=== PATIENT | female | born 1955 | race Caucasian/White ===

== ENCOUNTER 2022-10-13 13:20 | Emergency (ER) | payer MEDICARE, BC, SELFPAY ==
[2022-10-13 13:25] VITALS: BP 98/65; PULSE 92; RESP 14; TEMP 36.9; O2SAT 99; BMI 19.7
--- NOTE | 2022-10-13 13:41 | CRLHL7_ITS ---
For Patients: As a result of the Century Cures Act, medical imaging exams and procedure reports are released immediately into your electronic medical record. You may view this report before your referring provider. If you have questions, please contact your health care provider. INDICATION: Lower abdominal pain, history of diverticulitis TECHNIQUE: Axial images were obtained from the diaphragm to the pubic symphysis. Reformats were obtained in the coronal and sagittal plane. IV Contrast: 56 cc Isovue 370 Oral Contrast: None COMPARISON: Abdomen and pelvis CT 05/06/2021 FINDINGS: Lower chest: Basilar discoid atelectasis. Calcified granuloma right lower lobe. Calcified right infrahilar and right paraesophageal lymph nodes. Liver: Unremarkable. Normal in size and attenuation. No masses. Gallbladder and bile ducts: Unremarkable. No stones or inflammation. No biliary dilatation. Spleen: Unremarkable. Normal in size without mass. Pancreas: Unremarkable. No mass or inflammation. Adrenal glands: Unremarkable. No nodules. Kidneys: Symmetric renal enhancement with left renal cyst. Bilateral extrarenal pelvises. Vasculature: Unremarkable. GI tract: The stomach is decompressed. No dilated loops of large or small intestine with colonic diverticulosis noted. Appendix unremarkable. At the mid sigmoid colon there is trace free fluid, colonic wall thickening surrounding a mid sigmoid diverticulum (series 4, image 49). Pelvis: Unremarkable. Bones: Old compression fracture of L5 with loss of height near 25 percent. Status post right total hip replacement. IMPRESSION: 1. Acute diverticulitis mid sigmoid colon. Trace free fluid without evidence of abscess. 2. Old granulomatous disease. Please note that all CT scans at this facility use dose modulation, iterative reconstruction, and/or weight-based dosing when appropriate to reduce radiation dose to as low as reasonably achievable. Dictated by Max Godinez MD @ 10/13/2022 3:29:21 PM (Electronically Signed)
--- NOTE | 2022-10-13 13:43 | ED_ITS ---
HPI - Abdominal Pain General Chief Complaint: Abdominal Pain Stated Complaint: Abdominal/back pain Time Seen by Provider: 10/13/22 13:35 History of Present Illness HPI narrative: This 67-year-old female comes in reporting 2 days of abdominal pain in her lower abdomen. She also feels some pain in her low back. She states that she felt feverish a couple days ago. She does not report any vomiting or diarrhea. She does have a history of diverticulitis a couple times in the past. She does not report any altered bowel function or dysuria symptoms. Related Data Previous Rx's Medication Instructions Recorded amoxicillin 875 mg-potassium 1 tab PO BID #20 tabs 10/13/22 clavulanate 125 mg tablet hydrocodone 5 mg-acetaminophen 325 1 tab PO Q4-6H PRN pain #10 tabs 10/13/22 mg tablet Allergies Allergy/AdvReac Type Severity Reaction Status Date / Time Penicillins Allergy Mild Hives Verified 10/13/22 14:58 Review of Systems Status of ROS Reports: 10 or more systems reviewed and unremarkable except as noted in History and below Narrative Constitutional: No fevers, no weight gain or loss. Eyes: No discharge. No vision changes. HENT: No congestion, no sore throat, no ear pain. Cardiovascular: No chest pain, no palpitations. Respiratory: No shortness of breath, no wheezes, no cough. Gastrointestinal: No vomiting, no diarrhea. Lower abdominal pain and pain in the low back. Genitourinary: No dysuria, no hematuria. Musculoskeletal: Normal range of motion. Skin: No rashes, no pruritis. Neurological: No dizziness, weakness, sensory change, speech change. Endo/Heme/Allergies: No bruising or bleeding. No polydipsia. Pysch: no suicidality, no anxiety, no insomnia. All other systems reviewed and are negative. PFSH PFSH Social History Smoking Status: Never smoker Do you use any of these nicotine containing products: None Second hand tobacco smoke exposure: No How often do you have a drink containing alcohol: never AUDIT-C Alcohol total score: 0 Non-prescribed substance use: denies use Exam Narrative: Exam Narrative: Constitutional: Well-developed, well-nourished, no acute distress. HEENT: Normocephalic, atraumatic. Neck: Normal range of motion. Nontender. Supple. Heart: Regular. No murmurs. Normal rate. Intact distal pulses. Lungs: Clear to auscultation. No chest discomfort. No wheezes, rhonchi, or rales. Abdomen: Normal bowel sounds. Tenderness across the lower abdomen radiating into the low back. Rebound tenderness is present. Genitalia: Deferred. Back: No midline tenderness. Normal range of motion. Extremities: Normal range of motion. No injury. Skin: Intact. No rash. Warm. No erythema or pallor. Neurologic: No altered sensation. No weakness. Alert and oriented. Psychiatric: No suicidality. No anxiety or depression. No insomnia. Nursing notes and vitals signs are reviewed. Const: Vital Signs, click to edit/add: Vital Signs - 24 hr 10/13/22 13:25 Temperature 98.5 F Pulse Rate [Pulse Oximeter] 92 Respiratory Rate 14 Blood Pressure [Ri ght Upper Arm] 98/65 Pulse Oximetry 99 Oxygen Delivery Me thod Room Air Course Vital Signs Vital signs: Initial Vital Signs Temperature 98.5 F 10/13/22 13:25 Temperature Source Temporal Artery Scan 10/13/22 13:25 Pulse Rate 92 10/13/22 13:25 Respiratory Rate 14 10/13/22 13:25 Blood Pressure 98/65 10/13/22 13:25 Blood Pressure Mean 76 10/13/22 13:25 Blood Pressure Position Sitting 10/13/22 13:25 Pulse Oximetry 99 10/13/22 13:25 Oxygen Delivery Method Room Air 10/13/22 13:25 Vital Signs Temperature 98.5 F 10/13/22 13:25 Pulse Rate 92 10/13/22 13:25 Respiratory Rate 14 10/13/22 13:25 Blood Pressure 98/65 10/13/22 13:25 Pulse Oximetry 99 10/13/22 13:25 Oxygen Delivery Method Room Air 10/13/22 13:25 Temperature 98.5 F 10/13/22 13:25 Pulse Rate 92 10/13/22 13:25 Respiratory Rate 14 10/13/22 13:25 Blood Pressure 98/65 10/13/22 13:25 Pulse Oximetry 99 10/13/22 13:25 Oxygen Delivery Method Room Air 10/13/22 13:25 MDM - Abdominal Pain MDM Narrative Medical decision making narrative: This patient comes in with abdominal pain over the past couple days. An IV was established and labs are acquired along with a CT scan of the abdomen and pelvis. CT imaging does show evidence of acute diverticulitis without any further complication. The patient has a history of diverticulitis a couple times in the past. I did discuss management and prevention issues regarding this condition. She states that she has had Cipro and Flagyl in the past to treat this but those medicines did not sit well with her. I did prescribe Augmentin and some tablets of Woody and indicated that any antibiotic can cause adverse symptoms. I also recommended that she keep her stool soft by using fiber additive. This is especially important when taking pain medicine. The patient does have penicillin listed as an allergy but states that she has taken amoxicillin without trouble in the past. Lab Data Labs: Lab Results 10/13/22 10/13/22 Range/Units 14:05 14:20 WBC 9.32 (4.50-11.00) K/uL RBC 4.38 (4.00-5.20) m/uL Hgb 13.2 (12.0-16.0) gm/dL Hct 39.4 (33.0-51.0) % MCV 90 (80-100) fL MCH 30 (26-34) pg MCHC 34 (32-36) gm/dL RDW Coeff of Deshawn 11.8 (11.5-15.5) % Plt Count 178 (140-440) K/uL Neut % (Auto) 79.0 H (42.0-72.0) % Lymph % (Auto) 13.1 L (20-44) % Kemper % (Auto) 7.5 (0.0-11.0) % Eos % (Auto) 0.2 (0.0-7.0) % Baso % (Auto) 0.1 (0.0-3.0) % Neut # (Auto) 7.40 H (1.7-7.0) K/uL Lymph # (Auto) 1.20 (0.90-2.90) K/uL Kemper # (Auto) 0.70 (0.00-0.90) K/UL Eos # (Auto) 0.02 (0.00-0.50) K/uL Baso # (Auto) 0.01 (0.00-0.30) K/uL Sodium 132 L (135-149) mmol/L Potassium 4.3 (3.6-5.1) mmol/L Chloride 101 (96-114) mmol/L Carbon Dioxide 26 (20-32) mmol/L BUN 13 (7-30) mg/dL Creatinine 0.6 (0.5-1.5) mg/dL Estimated Creat Clear 44.34 Estimated GFR 98 ml/min Glucose 103 (60-115) mg/dL Calcium 9.1 (8.4-10.6) mg/dL Urine Color Yellow (Yellow) Urine Appearance Slightly Cloudy A (Clear) Urine pH 6.5 (5.0-8.5) Ur Specific [place] 1.020 (1.000-1.030) Urine Protein Trace A (Negative) Urine Glucose (UA) Negative (Negative) Urine Ketones Trace A (Negative) Urine Blood Negative (Negative) Urine Nitrite Negative (Negative) Urine Bilirubin Negative (Negative) Urine Urobilinogen 0.2 (0.2-1.0) Ur Leukocyte Esterase Trace A (Negative) Urine RBC 2-5 A (0-2) Urine WBC 0-2 (0-5) Urine WBC Clumps None (None) Ur Squamous Epith Cells Few (None-Few) Urine Bacteria None (None) Imaging Data CT scan - abdomen: Radiologist's impression: 1. Acute diverticulitis mid sigmoid colon. Trace free fluid without evidence of abscess. 2. Old granulomatous disease. Discharge Plan Discharge Clinical Impression: Diverticulitis Patient Disposition: Home, Self-Care Condition: Unchanged Additional Instructions: Take medication as prescribed. Drink plenty of fluids. Use stool softeners as needed and directed. Follow up with MD or return if worsening. Prescriptions: New hydrocodone-acetaminophen 5-325 mg tablet 1 tab PO Q4-6H PRN (Reason: pain) Qty: 10 0RF amoxicillin-pot clavulanate 875-125 mg tablet 1 tab PO BID Qty: 20 0RF Follow Up/Referrals: Provider,Not a Local [Primary Care Provider] - Stand Alone Forms: [employer] Info Instructions
[2022-10-13 14:15] LABS: Basophils Absolute Auto 0.01 K/uL (0.00-0.30); Basophils Percent Auto 0.1 % (0.0-3.0); Eosinophils Absolute Auto 0.02 K/uL (0.00-0.50); Eosinophils Percent Auto 0.2 % (0.0-7.0); Hematocrit 39.4 % (33.0-51.0); Hemoglobin* 13.2 gm/dL (12.0-16.0); Immature Granulocytes Abs Auto 0.01 K/uL (0.00-0.30); Immature Granulocytes Pct Auto 0.1 %; Lymphocytes Percent Auto 13.1 % (20-44); Mean Corpuscular HGB Conc 34 gm/dL (32-36); Mean Corpuscular Hemoglobin 30 pg (26-34); Mean Corpuscular Volume 90 fL (80-100); Monocytes Percent Auto 7.5 % (0.0-11.0); Platelet Count* 178 K/uL (140-440); RDW Coefficient of Variation % 11.8 % (11.5-15.5); Red Blood Count 4.38 m/uL (4.00-5.20); White Blood Count* 9.32 K/uL (4.50-11.00)
[2022-10-13 14:17] LABS: Slide Review Reflex No
[2022-10-13 14:28] LABS: Chloride* 101 mmol/L (96-114); Potassium* 4.3 mmol/L (3.6-5.1); Sodium* 132 mmol/L (135-149)
--- NOTE | 2022-10-13 14:28 | ED.NURSE ---
urine collected and sent to lab
[2022-10-13 14:30] LABS: Creatinine* 0.6 mg/dL (0.5-1.5); Est. Creatinine Clearance* 44.34; Estimated Glomerular Filt Rate 98 ml/min
[2022-10-13 14:31] LABS: Blood Urea Nitrogen* 13 mg/dL (7-30); Carbon Dioxide* 26 mmol/L (20-32); Glucose* 103 mg/dL (60-115)
[2022-10-13 14:32] LABS: Appearance Urine Slightly Cloudy (Clear); Bilirubin Urine Negative (Negative); Blood Urine Negative (Negative); Color Urine Yellow (Yellow); Glucose Urine Negative (Negative); Ketones Urine Trace (Negative); Leukocyte Esterase Urine Trace (Negative); Nitrite Urine Negative (Negative); Protein Urine Trace (Negative); Urobilinogen Urine 0.2 (0.2-1.0); pH Urine 6.5 (5.0-8.5)
[2022-10-13 14:32] LABS: Calcium* 9.1 mg/dL (8.4-10.6)
[2022-10-13 15:21] LABS: Squamous Epithelial Cell Urine Few (None-Few); WBC Urine 0-2 (0-5)
== END 2022-10-13 16:16 | disposition home or self-care (01) ==
PROVIDERS: Emergency Provider Emergency Medicine Emergency Medical Services
DX: R10.9 Unspecified abdominal pain (principal)
CPT/HCPCS: 36415; 74177; 80048; 81001; 85025; 99284; Q9967

== ENCOUNTER 2024-06-09 11:04 | Outpatient (CLI) | payer MEDICARE, BC, SELFPAY | END 2024-06-09 11:05 | disposition home or self-care (01) | LOC: NFLDREF 06-12 06:26 | PROVIDERS: Visit Provider Nurse Practitioner Family | DX: N30.00 Acute cystitis without hematuria (principal); B96.20 Unspecified Escherichia coli [E. coli] as the cause of diseases classified elsewhere | CPT/HCPCS: 87086; 87186 ==

== ENCOUNTER 2024-09-11 08:06 | Emergency (ER) | payer MEDICARE, BC, SELFPAY ==
[2024-09-11 08:09] VITALS: BP 107/69; PULSE 82; RESP 16; TEMP 37; O2SAT 98; BMI 22.5
--- OUTSIDE RECORDS SUMMARY | 2024-09-11 08:09 | XMS_ITS | Encounter Summary ---
Author Organization [place] Address [address] [place] [id number] Care Team Providers Care Waste Removalist Name Role Phone Denisha Grayson DO Primary Care Provider [phone] Gómez Cook MD Unavailable [phone] Gómez Cook MD Unavailable [phone] Glenna Bryant PA-C Primary Care Provid er Glenna Bryant PA-C Unavailable + [phone] Gómez Cook MD Unavailable [phone] Reason for Visit * Reason Onset Date Comments Results 10/10/2019 would like to ta lk to the nurse today Results 10/11/2019 Xray results fro m monday Encounter Details Date Type Department Care Team (Late st Contact Info) Description 10/10/2019 Telephone [facility] [address] [place] [address] Gómez Cook MD [address] [place] [address] Results (would like to talk to the nurse today); Results (Xray results from monday ) Social History Tobacco Use Types Packs/Day Years Used Date Smoking Tobacco: Never Smokeless Tobacco: Never Alcohol Use Standard Drinks/Week Comments No 0 (1 standard drink = 0.6 oz pur e alcohol) PHQ-2 Answer Date Recorded PHQ-2 Score 0 07/10/2018 Comments No Sex and Gender Information Value Date Recorded Sex Assigned at Not on file Legal 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 No / Unsure 10/07/2019 8:43 AM CDT documented as of this encounter Miscellaneous Notes * Telephone Encounter - Samanta Rosas - 10/14/2019 8:41 AM CDT [facility] Phone Message May a detailed message be left on voicemail: yes Reason for Call: Requesting Results Name/type of test: Hip xray- was done last week- Pt called 4 times last week 5th time now. Please call patient back. Date of test: 10/07/2019 Was test done at a location other than [facility] (Please fill in the location if not [facility])?:[facility] Action Taken: Message routed to: [facility] ([facility]): orthopedics Travel Screening: Not Applicable * Telephone Encounter - Lisa Carr - 10/11/2019 8:40 AM CDT [facility] Phone Message May a detailed message be left on voicemail: yes Reason for Call: Other: Patient is calling in to try to get her xray results from monday. Please follow up with the patient lisa to discuss. Thank you. Action Taken: Message routed to: [facility] ([facility]): ortho Travel Screening: Not Applicable * Telephone Encounter - Rose Tatum - 10/10/2019 1:12 PM CDT [facility] Phone Message May a detailed message be left on voicemail: yes Reason for Call: Requesting Results Name/type of test: Xrays for femur, pelvis, and hip Date of test: 10/07/2019 Was test done at a location other than [facility] (Please fill in the location if not [facility])?: Yes: [facility] Action Taken: Message routed to: [facility] ([facility]): Ortho Travel Screening: Not Applicable documented in this encounter Plan of Treatment Not on file documented as of this encounter Visit Diagnoses Not on filedocumented in this encounter Care Teams Waste Removalist Relationship Specialty Start Date End Date Denisha Grayson DO PCP - General 12/16/15 08/09/23 Glenna Bryant PA-C [address] [address] PCP - General Family Medicine 08/10/23 Gómez Cook MD [address] [place] [address] Orthopedics 11/22/19 Gómez Cook MD [address] [place] [address] Assigned Musculoskeletal Provider 04/24/20 06/05/21 Glenna Bryant PA-C [address] [address] Assigned PCP 08/25/23 Gómez Cook MD [address] [place], [place] [id number] [place] [address] Assigned Musculoskeletal Provider 01/23/24 documented as of this encounter
--- OUTSIDE RECORDS SUMMARY | 2024-09-11 08:09 | XMS_ITS | Clinical Summary ---
[facility] Address [address] [address] Care Team Providers Care Social Studies Department Chair Name Role Phone Denisha Grayson DO Primary Care Provider + Source Comments You are receiving this document as you are listed as the primary care provider,follow-up provider, or the patient has been referred to you for consultation.This is in compliance with the Medicare and[facility] EHR Incentive Program,which states Providers who transition their patient to another setting of careor provider of care or refers their patient to another provider of care shouldprovide summary care record for each transition of care or referral. Formerly [facility] Allergies Active Allergy Reactions Criticality Noted Date Comments Penicillins Hives High 05/20/2017 Sulfa Antibiotics Hives High 05/20/2017 Medications Ascorbic Acid (VITAMIN C) 1000 MG tablet Take 1,000 mg by mouth daily. 11/23/2016 Active cholecalciferol (VITAMIN D-[address]) 1000 UNITS tablet Take 1,000 Units by mouth daily. 11/23/2016 Active multivitamin (THERAGRAN) tablet Take 1 Tab by mouth daily. 11/23/2016 Active Social History Tobacco Use Types Packs/Day Years Used Date Smoking Tobacco: Never Smokeless Tobacco: Never Comments Unknown Sex and Gender Information Value Date Recorded Sex Assigned at Not on file Legal Sex Female 5:12 AM CDT Gender Identity Not on file Sexual Orientation Not on file Last Filed Vital Signs Vital Sign Reading Time Taken Comments Blood Pressure 109/65 07/25/2017 10:07 AM CONVEYOR BELT OPERATOR Pulse 75 07/25/2017 10:07 AM CONVEYOR BELT OPERATOR Temperature - - Respiratory Rate - - Oxygen Saturation 96% 05/20/2017 8:26 AM CONVEYOR BELT OPERATOR Inhaled Oxygen Concentration - - Weight 54.6 kg (120 lb 6.4 oz) 07/25/2017 10:07 AM CONVEYOR BELT OPERATOR Height 165.1 cm (5' 5) 07/25/2017 10:07 AM CONVEYOR BELT OPERATOR Body Mass Index 20.04 07/25/2017 10:07 AM CONVEYOR BELT OPERATOR Plan of Treatment Health Maintenance Due Date Last Done Comments Colon Cancer Screening Plan Due 1955 Hep C Screening (Preventive Services) 1955 Mammogram 1955 Adult Preventive Visit 1972 Cholesterol 1999 Pneumococcal 50+ Yrs (1 of 1 - PCV) 2004 Zoster/Shingles (2 of 3) 09/01/2015 07/07/2015 DTaP/Tdap/Td (2 - Tdap) 06/03/2018 06/03/2008 COVID-19 Vaccine ( season) 2024 Influenza (#1) 2024 04/19/2017, 04/02, 07/07/2015, Additional history exists RSV (1 - 1-dose 75+ series) 2029 HepA Aged Out No longer eligi ble based on patient's age to complete this topic HepB Aged Out No longer eligi ble based on patient's age to complete this topic Hib Aged Out No longer eligi ble based on patient's age to complete this topic IPV (Polio) Aged Out No longer eligi ble based on patient's age to complete this topic MCV4 Aged Out No longer eligi ble based on patient's age to complete this topic Meningococcal B Aged Out No longer el igible based on patient's age to complete this topic Care Teams Social Studies Department Chair Relationship Specialty Start Date End Date Denisha Grayson DO [address] [facility] [address] [place] [address] PCP - General 07/25/17
--- OUTSIDE RECORDS SUMMARY | 2024-09-11 08:09 | XMS_ITS | Clinical Summary ---
Author Organization [facility] Address [address] [place] [address] Care Team Providers Care Station Baggage Agent Name Role Phone Gómez Cook MD Unavailable [phone] Glenna Bryant PA-C Primary Care Provid er Glenna Bryant PA-C Unavailable + [phone] Gómez Cook MD Unavailable [phone] Allergies No known active allergies Medications Multiple Vitamin (MULTI-VITAMINS) TABS 11/23/2016 Active ascorbic acid (VITAMIN C) 1000 MG TABS Take 1,000 mg by mouth 11/23/2016 Active cholecalciferol (VITAMIN D3) 1000 UNIT tablet Take 1,000 Units by mouth 11/23/2016 Active VITAMIN E BLEND PO Active zinc gluconate 50 MG tablet Take 1 tablet (50 mg) by mouth daily 08/11/2023 Active zoledronic Acid (RECLAST) 5 MG/100ML SOLN infusion Inject 100 mLs (5 mg) into the vein 08/11/2023 Active Active Problems Problem Noted Date Diagnosed Date ACP (advance care planning) 08/11/2023 Vagal reaction 07/07/2016 Pelvic mass 12/15/2015 S/P hip replacement 10/01/2012 Breast carcinoma 10/01/2012 Resolved Problems Problem Noted Date Diagnosed Date Resolved Date Health Correction 08/11/2023 12/18/2023 Immunizations Name Administration Dates Next Due Influenza Vaccine >6 months,quad, PF 04/24/2019 Influenza Vaccine, 6+MO IM (QUADRIVALENT W/PRESERVATIVES) 04/19/2017,04/12/2016,07/07/2015,2013,06/03/2013,04/27/2012 Pneumo Conj 13-V (2010&after) 07/10/2019 TDAP (Adacel,Boostrix) 04/24/2019,06/03/2008 Zoster recombinant adjuvante d (SHINGRIX) 01/26/2018,10/16/2017 Zoster vaccine, live 07/07/2015 Family History Medical History Relation Comments Coronary Artery Disease Brother 2 stents Coronary Artery Disease Father Heart Failure Father Breast Cancer Maternal Grandmother Cerebrovascular Disease Mother stroke Relation Status Comments Brother 1 Alive Brother 2 Alive Brother 3 Alive Father (Age 79) CHF Maternal Grandfather Maternal Grandmother Mother Alive Paternal Grandfather Paternal Grandmother Sister 1 Alive Sister 2 Alive Social History Tobacco Use Types Packs/Day Years Used Date Smoking Tobacco: Never Passive Smoke Exposure: Never Smokeless Tobacco: Never Alcohol Use Standard Drinks/Week Comments No 0 (1 standard drink = 0.6 oz pur e alcohol) PHQ-2 Answer Date Recorded PHQ-2 Score 0 08/11/2023 Adolescent Education Answer Date Record ed Getting School Help Needed Not on file 04/09 Comments No Sex and Gender Information Value Date Recorded Sex Assigned at Not on file Legal Sex Female 3:16 AM HEMMER LOCKSTITCH Gender Identity Not on file Sexual Orientation Not on file Last Filed Vital Signs Vital Sign Reading Time Taken Comments Blood Pressure 96/68 08/11/2023 1:09 PM HEMMER LOCKSTITCH Pulse 80 08/11/2023 1:09 PM HEMMER LOCKSTITCH Temperature 37 C (98.6 F) 08/11/2023 1:09 PM HEMMER LOCKSTITCH Respiratory Rate 20 08/11/2023 1:09 PM HEMMER LOCKSTITCH Oxygen Saturation 100% 06/27/2016 4:00 PM HEMMER LOCKSTITCH Inhaled Oxygen Concentration - - Weight 55.3 kg (122 lb) 12/28/2023 12:33 PM CDT Height 160 cm (5' 3) 12/28/2023 12:33 PM CDT Body Mass Index 21.61 12/28/2023 12:33 PM CDT Plan of Treatment Health Maintenance Due Date Last Done Comments ANNUAL REVIEW OF HM ORDERS 1955 CT COLONOGRAPHY 1955 FIT 1955 FLEX SIG 1955 sDNA (Cologuard) 1955 LIPID 1994 MEDICARE ANNUAL WELLNESS VISIT 2019 GLUCOSE 06/27/2019 06/27/2016, 10/24/2004 Pneumococcal Vaccine: 50+ Years (2 of 2 - PPSV23) 07/10/2020 07/10/2019 COVID-19 Vaccine ( - season) 2024 INFLUENZA VACCINE (#1) 2024 9, 04/19/2017, 04/12/2016, Additional history exists PHQ-2 (once per calendar year) 2024 08/11/2023, 12/05/2019, 04/30/2018 FALL RISK ASSESSMENT 08/11/2024 08/11/2023 MAMMO SCREENING 09/17/2024 09/18/2023, 08/31, 09/13/2021, Additional history exists ADVANCE CARE PLANNING 08/11/2028 08/11/2023, 024 COLONOSCOPY 09/20/2028 09/20/2018, 01/31, 09/13/2004 COLORECTAL CANCER SCREENING 09/20/2028 DTAP/TDAP/TD IMMUNIZATION (3 - Td or Tdap) 04/24/2029 04/24/2019, 06/03/2008 RSV VACCINE (1 - 1-dose 75+ series) 2029 DEXA 11/24/2036 11/24/2021, 08/2019, 07/04/2019 ZOSTER IMMUNIZATION Completed 01/26/2018, 10/16/2017, 07/07/2015 HEPATITIS C SCREENING Completed 07/10/2019 HPV IMMUNIZATION Aged Out No longer e ligible based on patient's age to complete this topic MENINGITIS IMMUNIZATION Aged Out No l onger eligible based on patient's age to complete this topic Procedures Procedure Name Priority Date/Time Associated Diagnosis Comments MA SCREENING BILATERAL W/ FREDY Routine 09/18/2023 10:49 AM CDT Visit for screening mammogram DX BONE DENSITY Routine 07/04/2019 9:57 AM HEMMER LOCKSTITCH Post-menopausal COMPREHENSIVE METABOLIC PANEL STAT 06/27/2016 11:55 AM HEMMER LOCKSTITCH COLONOSCOPY - HIM SCAN Routine 02/18/2015 from Last 3 Months or Most Recently Relevant to Health Maintenance Results * MA Screen Bilateral w/Fredy (09/18/2023 10:49 AM CDT) Anatomical Region Laterality Modality Breast Bilateral Mammography Impressions 09/18/2023 11:54 AM CDT IMPRESSION: ACR BI-RADS Category 1: Negative BREAST CANCER SCREENING RECOMMENDATION: Routine yearly mammography beginning at age 40 or as discussed with your provider. The results and recommendations of this examination will be communicated to the patient. Heide Espinoza MD Narrative 09/18/2023 11:54 AM CDT BILATERAL FULL FIELD DIGITAL SCREENING MAMMOGRAM WITH TOMOSYNTHESIS Performed on: 09/18/23 Compared to: 09/16/2022, 09/13/2021, and 09/08/2020 Technique: This study was evaluated with the assistance of Computer-Aided Detection. Breast Tomosynthesis was used in interpretation. Findings: The breasts are heterogeneously dense, which may obscure small masses. There is no radiographic evidence of malignancy. Glenna Bryant PA-C IM MAMMOGRAPHY [place] Final Result * DX Hip/Pelvis/Spine (07/04/2019 9:57 AM HEMMER LOCKSTITCH) Anatomical Region Laterality Modality Dexa Bone Mineral Den sity Narrative 07/08/2019 1:44 PM HEMMER LOCKSTITCH BONE DENSITOMETRY [address] [address] 07/04/2019 PATIENT: Faiza Nick CHART: [id number] : 1955 AGE: [age] year old SEX: female REFERRING PROVIDER: Barbara Ojeda PA-C PROCEDURE: Bone density scanning was performed using DXA technology of the lumbar spine and hip. Scanning was performed on a Fashinating scanner. Reporting is completed in the form of a T-score. The T-score represents the standard deviation from peak bone mass based on a young healthy adult. REFERENCE T-SCORES: Normal -1.0 and greater Osteopenia Between -1.0 and -2.5 Osteoporosis -2.5 and less RISK FACTORS: Post-menopausal CURRENT TREATMENT: None listed FINDINGS: Lumbar Spine (L1-L4) T-score: -3.5 Left Femoral Neck T-score: -2.8 Forearm (radius 33%) T-score: -3.0 The right femur is not acceptable for evaluation due to previous arthroplasty. Lumbar (L1-L4) BMD: 0.761 Left Total Hip BMD: 0.602 Forearm (radius 33%) BMD: 0.611 IMPRESSION Osteoporosis. Recommendations include ensuring adequate Calcium and Vitamin D. The current NOF Guidelines recommend treatment for patients with prior hip or vertebral fracture, T-score -2.5 or below, or 10 year risk of any major osteoporotic fracture >20% or 10 year risk of hip fracture >3%, as calculated using the FRAX calculator (www.shef.ac.uk/FRAX or you can google FRAX). Based on these guidelines, treatment (in addition to calcium and vitamin D) is recommended for this patient, after ruling out other causes of osteoporosis. This is meant as an aid to clinical decision making; one must still use clinical judgement. Follow up can be considered in 2 years. Melissa Becker M.D. Electronically signed us Barbara Ojeda PA-C IMG DEXA ORDERABLES [place] [facility] Result * Comprehensive metabolic panel (06/27/2016 11:55 AM HEMMER LOCKSTITCH) Sodium 142 133 - 144 mmol/L [facility] Potassium 3.7 3.4 - 5.3 mmol/L [facility] Chloride 108 94 - 109 mmol/L [facility] Carbon Dioxide 26 20 - 32 mmol/L [facility] Anion Gap 8 3 - 14 mmol/L [facility] Glucose 83 70 - 99 mg/dL [facility] Urea Nitrogen 16 7 - 30 mg/dL [facility] Creatinine 0.67 0.52 - 1.04 mg/dL [facility] GFR Estimate 90 >60 mL/min/1. 7m2 [facility] Comment:Non GFR Calc GFR Estimate If Black >90 GFR Calc >60 mL/min/1. 7m2 [facility] Calcium 9.3 8.5 - 10.1 mg/dL [facility] Bilirubin Total 0.4 0.2 - 1.3 mg/dL [facility] Albumin 3.5 3.4 - 5.0 g/dL [facility] Protein Total 7.4 6.8 - 8.8 g/dL [facility] Alkaline Phosphatase 108 40 - 150 U/L [facility] ALT 16 0 - 50 U/L [facility] AST 20 0 - 45 U/L [facility] Blood specimen (specimen) 06/27/2016 11:55 AM HEMMER LOCKSTITCH 06/27/2016 12:05 PM HEMMER LOCKSTITCH us Qamar Campbell MD LAB - BLOOD ORDERABLES Fi nal Result [facility] [address] [place] [address], [facility] [phone] * Colonoscopy - HIM Scan (02/18/2015) 02/18/2015 Narrative Kati Neal CMA - 02/18/2015 [facility] Everywhere us Provider Outside PROCEDURES Final Result from Last 3 Months or Most Recently Relevant to Health Maintenance Insurance MEDICARE [facility] BLUE MEDICARE [facility] BLUE [facility] BLUE MEDICARE BC DIOMEDE BLUE Care Teams Station Baggage Agent Relationship Specialty Start Date End Date Glenna Bryant PA-C [address], [address] [place] [address] PCP - General Family Medicine 08/10/23 Gómez Cook MD [address] [place] [address] Orthopedics 11/22/19 Glenna Bryant PA-C [address], [address] [place] [address] Assigned PCP 08/25/23 Gómez Cook MD [address] [place] [address] Assigned Musculoskeletal Provider 01/23/24
--- OUTSIDE RECORDS SUMMARY | 2024-09-11 08:09 | XMS_ITS | Clinical Summary ---
Author Organization [facility] Address [address] [place] [address] Care Team Providers Care Claims Director Name Role Phone Barbara Ojeda Primary Care Provider Marleny Douglas Loraine DO Unavailable [phone] Allergies Active Allergy Reactions Criticality Noted Date Comments Penicillins Hives 09/10/2009 Sulfa (Sulfonamide Antibiotics) Hives Unknown 08/31 Medications cholecalciferol (VITAMIN D3) 1,000 unit tablet Take 1 tablet by mouth once daily. 0 7 Active ascorbic acid, vitamin C, (VITAMIN C) 1,000 mg tablet Take 1 tablet by mouth once daily. 0 7 Active zinc 50 mg tablet Take 1 Tablet (50 mg) by mouth once daily. 0 2 Active ibuprofen (ADVIL; MOTRIN) 600 mg tabletIndicatio ns:Spigelian hernia Take 1 Tablet (600 mg) by mouth every 6 hours if needed for Pain. Maximum of 3200 mg in 24 hours. 40 Tablet 2 Active acetaminophen (TYLENOL EXTRA STRGTH) 500 mg tabletIndicatio ns:Spigelian hernia Take 2 Tablets (1,000 mg) by mouth every 6 hours if needed for Pain. Max acetaminophen dose: 4000mg in 24 hrs. 40 Tablet 2 Active triamcinolone 0.025% (ARISTOCORT) 0.025 % ointmentIndicat ions:Eczema, unspecified type Apply topically to affected area(s) two times daily. 30 g 4 Active Active Problems Problem Noted Date Diagnosed Date Age-related osteoporosis wit hout current pathological fracture 07/29/2019 Diverticulosis 03/06/2019 Overview (03/06/2019): On colonoscopy 08/2018 Status post right hip replac ement (avascular necrosis 10/2003) 08/07/2013 Graves disease (now euthyroid off meds) 02/06/20 13 Hx of breast cancer (ER and OR positive, Right lumpectomy July 2003, sentinal node negative, radiation therapy, no chemo) 09/10/2009 Encounters Date Type Department Care Team Description 09/10/2024 Telephone [facility] [address] [place] [address] Barbara Ojeda PA 07/01/2024 2:40 PM BEET FLUMER Phone Office Visit [facility] [address] [facility] [address] [place] [address] Douglas Farmer DO 07/01/2024 Travel from Last 3 Months Immunizations Immunization Administration Dates Next Due AMB INFLUENZA, IIV4 (AGE=>6M OS) MDV (Flu Clinic Only) 04/19/2017,04/12/2016,07/07/2015,2013,06/03/2013,04/27/2012 Influenza Virus, Unspecified 04/19/2017, 04/12/2016,07/07/2015,2013 Influenza, IIV3 (Age >=3 years) 06/03/2013,04/27 Influenza, IIV4 04/24/2019, 7,04/12/2016,2015,05/06/2014 Pneumococcal conj 13-Valent (Prevnar 13) 07/10/2019 Tdap 04/24/2019,06/03/2008 Zoster (Shingrix-RZV, recombinant) 01/26/2018, Zoster (Zostavax-ZVL, live) 07/07/2015 Family History Medical History Relation Name Comments Heart Disease Brother [place] Heart Disease Father CHF, surgery c omplications Cancer-breast Maternal Grandmother No Known Problems Mother Relation Name Status Comments Brother Father Maternal Grandmother Mother Alive Social History Tobacco Use Types Packs/Day Years Used Date Smoking Tobacco: Never Smokeless Tobacco: Never Tobacco Cessation:Counseling Given: Yes Alcohol Use Standard Drinks/Week Comments No 0 (1 standard drink = 0.6 oz pur e alcohol) PHQ-2 Answer Date Recorded PHQ-2 TOTAL SCORE 0 10/26/2020 Social Connections Answer Date Recorded Frequency of Communication with Friends and Fami ly 0 12/15/2021 Financial Resource Strain Answer Date R ecorded Difficulty of Paying Living Expenses 3 12/15/2021 Difficulty of Paying Living Expenses Not on file 12/15/2021 Food Insecurity Answer Date Recorded Worried About Running Out of Food in the Last Ye ar 1 12/15/2021 Transportation Needs Answer Date Record ed Lack of Transportation (Medical) 1 12/15/2021 Housing Stability Answer Date Recorded Unable to Pay for Housing in the Last Year 1 12/15/2021 Comments No Sex and Gender Information Value Date Recorded Sex Assigned at Not on file Legal Sex Female 7:44 AM BEET FLUMER Gender Identity Not on file Sexual Orientation Not on file Occupation Industry Job Start Date Job End Date Retired - [employer] Not on file Not on file Not on file Obstetrics History Last Filed Vital Signs Vital Sign Reading Time Taken Comments Blood Pressure 114/62 11/20/2023 9:40 AM CDT Pulse 72 11/20/2023 9:40 AM CDT Temperature 36.5 C (97.7 F) 05/03/2023 12:09 PM CDT Respiratory Rate 16 01/19/2022 1:57 PM CDT Oxygen Saturation 96% 01/19/2022 1:57 PM CDT Inhaled Oxygen Concentration - - Weight 56.7 kg (125 lb) 11/20/2023 9:40 AM CDT Height 160 cm (5' 3) 01/19/2022 9:04 AM CDT Body Mass Index 22.14 01/19/2022 9:04 AM CDT Plan of Treatment Health Maintenance Due Date Last Done Comments Medicare Wellness for age 65+ 07/10/2020 07/10/2019 Pneumococcal series for age 50+ (2 of 2 - PPSV23) 07/10/2020 07/10/2019 Depression screening for age 12+ 10/26/2021 10/26/2020, 07/10/2019, 04/25/2019, Additional history exists BMI (ht and wt on same day) for age 18+ 01/12/2023 01/12/2022, 10/26/2020, 07/29/2019, Additional history exists Mammogram for age 45-75 09/17/2023 09/17/19, 09/13/2021 (Verified in Care Everywhere or Patient Record), 09/08/2020, Additional history exists Colonoscopy through age 75 09/21/202309/20, 09/20/2018, 02/18/2015, Additional history exists COVID-19 vaccine series ( season) 2024 Influenza Vaccine (#1) 2024 9, 04/19/2017, 04/19/2017, Additional history exists Lipids for age 45-75 04/25/2024 04/25/2019, 07/07/2015, 02/05/2013 (Completed outside of [facility]), Additional history exists Tetanus booster 04/24/2029 04/24/2019, 06/03/2008 RSV vaccine for adults or (1 - 1-dose 75+ series) 2029 Zoster (shingles) series for age 50+ Completed 01/26/2018, 10/16/2017, 07/07/2015 Tdap Completed 04/24/2019, 06/03/2008 Hepatitis C screening for ag e 18-79 Completed 07/10/2019 DEXA/DXA scan for age 65+ Completed 2023, 11/24/2021, 07/04/2019 Medical Devices Implanted Type Area Public Relations Manager Device Identifier Shelf Expiration Date Model / Serial / Lot Mesh Ventral 4.5in Ventralight St W/[address] Cir - [id number] Implanted:Qty: 1 on 01/19/2022 by Stef Guerrero MD at [facility] General Surgery Implants [employer] MESH 05/30/2023 [id number] / / [id number] Procedures Procedure Name Priority Date/Time Associated Diagnosis Comments XR DXA BONE DENSITY 2 SITES AXIAL Routine 05/08/2024 9:58 AM BEET FLUMER Age-related osteoporosis without current pathological fracture SCAN-MAMMOGRAPHY REPORT 09/16/2022 12:00 AM CDT ANTI HCV Routine 07/10/2019 12:33 PM BEET FLUMER Need for hepatitis C screening test LIPID PANEL W REFLEX MEASURED LDL Routine 04/25/2019 2:35 PM CDT Borderline high cholesterol SCAN-COLONOSCOPY 09/20/2018 12:0 0 AM CDT from Last 3 Months or Most Recently Relevant to Health Maintenance Results * XR DXA BONE DENSITY 2 SITES AXIAL (05/08/2024 9:58 AM BEET FLUMER) Anatomical Region Laterality Modality Spine, HIPS, HIPL, HIPR Computed Radiography 05/08/2024 9:58 AM BEET FLUMER Impressions 05/09/2024 9:31 AM BEET FLUMER OSTEOPOROSIS. T score meets the WHO criteria for osteoporosis at one or more measured sites. The risk of osteoporotic fracture increases approximately two-fold for each standard deviation decrease in T-score. Narrative 05/09/2024 9:31 AM BEET FLUMER For Patients: As a result of the Century Cures Act, medical imaging exams and procedure reports are released immediately into your electronic medical record. You may view this report before your referring provider. If you have questions, please contact your health care provider. EXAM: XR DXA BONE DENSITY 2 SITES AXIAL LOCATION: [facility] DATE: 05/08/2024 INDICATION: , postmenopausal, height loss, history of osteoporosis with Reclast use, family history of a hip fracture in a first-degree relative, bone fracture during adulthood. DEMOGRAPHICS: Age- 68 years. Gender- Female. Menopausal status- Postmenopausal. COMPARISON: 11/24/2021 TECHNIQUE: Dual-energy x-ray absorptiometry (DXA) performed with routine technique. FINDINGS: DXA RESULTS -Lumbar Spine: L1-L4: BMD: 0.755 g/cm2. T-score: -3.5. Z-score: -1.5. -LEFT Hip Total: BMD: 0.660 g/cm2. T-score: -2.8. Z-score: -1.1. -LEFT Hip Femoral neck: BMD: 0.711 g/cm2. T-score: -2.4. Z-score: -0.4. WHO T-SCORE CRITERIA -Normal: T score at or above -1 SD -Osteopenia: T score between -1 and -2.5 SD -Osteoporosis: T score at or below -2.5 SD The World Health Organization (WHO) criteria is applicable to perimenopausal females, postmenopausal females, and men aged 50 years or older. INTERVAL CHANGE -There has been a 7.4% increase in lumbar spine BMD. -There has been a 0.3% increase in the left hip BMD. FRACTURE RISK -The FRAX risk calculator is not applicable due to osteoporosis. RECOMMENDATIONS The patient's BMD is consistent with osteoporosis, and he/she is at increased fracture risk. If not currently being treated for low BMD, this would merit treatment according to the Bone Health and Osteoporosis Foundation. Procedure Note Melissa Maher PA - 05/09/2024 For Patients: As a result of the Cures Act, medical imagingexams and procedure reports are released immediately into your electronicmedical record. You may view this report before your referring provider.If you have questions, please contact your health care provider. EXAM: XR DXA BONE DENSITY 2 SITES AXIAL LOCATION: [facility] DATE: 05/08/2024 INDICATION: , postmenopausal, height loss, history ofosteoporosis with Reclast use, family history of a hip fracture in afirst-degree relative, bone fracture during adulthood. DEMOGRAPHICS: Age- 68 years. Gender- Female. Menopausal status-Postmenopausal. COMPARISON: 11/24/2021 TECHNIQUE: Dual-energy x-ray absorptiometry (DXA) performed with routinetechnique. FINDINGS: DXA RESULTS -Lumbar Spine: L1-L4: BMD: 0.755 g/cm2. T-score: -3.5. Z-score: -1.5. -LEFT Hip Total: BMD: 0.660 g/cm2. T-score: -2.8. Z-score: -1.1. -LEFT Hip Femoral neck: BMD: 0.711 g/cm2. T-score: -2.4. Z-score: -0.4. WHO T-SCORE CRITERIA -Normal: T score at or above -1 SD -Osteopenia: T score between -1 and -2.5 SD -Osteoporosis: T score at or below -2.5 SD The World Health Organization (WHO) criteria is applicable toperimenopausal females, postmenopausal females, and men aged 50 years orolder. INTERVAL CHANGE -There has been a 7.4% increase in lumbar spine BMD. -There has been a 0.3% increase in the left hip BMD. FRACTURE RISK -The FRAX risk calculator is not applicable due to osteoporosis. RECOMMENDATIONS The patient's BMD is consistent with osteoporosis, and he/she is atincreased fracture risk. If not currently being treated for low BMD, thiswould merit treatment according to the Bone Health and OsteoporosisFoundation. IMPRESSION: OSTEOPOROSIS. T score meets the WHO criteria for osteoporosis at one ormore measured sites. The risk of osteoporotic fracture increasesapproximately two-fold for each standard deviation decrease in T-score. Douglas Farmer DO DEXA Final Resul t * SCAN-MAMMOGRAPHY REPORT (09/16/2022 12:00 AM CDT) Anatomical Region Laterality Modality Other us Scanner OTHER Final Result * ANTI HCV (07/10/2019 12:33 PM BEET FLUMER) [facility] HEPATITIS C ANTIBODY Non-React jin Non-React jin 07/10/2019 8:03 PM BEET FLUMER [facility] Comment:Antibodies to HCV no t detected; does not exclude the possibility of exposure to HCV. Blood BLOOD SPECIMEN / Unknown Venipuncture / Unknown 07/10/2019 12:33 PM BEET FLUMER 07/10/2019 12:33 PM BEET FLUMER Barbara GOODWIN SEND OUTS Final Result [facility] [address] [place] [address], * (ABNORMAL) LIPID PANEL W REFLEX MEASURED LDL (04/25/2019 2:35 PM CDT) [facility] CHOLESTEROL,TOTAL 205(H) 100 - 199 mg/dL 04/25/2019 8:21 PM CDT [facility] TRIGLYCERIDES 73 <150 mg/dL 04/25/2019 8:21 PM CDT [facility] HDL CHOLESTEROL 60 >40 mg/dL 9 8:21 PM CDT [facility] NON-HDL CHOLESTEROL 145(H) <145 mg/dl 04/25/2019 8:21 PM CDT [facility] CHOL/HDL RATIO 3.42 <4.50 04/25/2019 8:21 PM CDT [facility] LDL CHOLESTEROL 130 <=130 mg/dL 04/25/2019 8:21 PM CDT [facility] PROVIDER ORDERED STATUS FASTING 04/25/2019 8:21 PM CDT [facility] Blood BLOOD SPECIMEN / Unknown Venipuncture / Unknown 04/25/2019 2:35 PM CDT 04/25/2019 2:35 PM CDT us Barbara GOODWIN CHEMISTRY Final Result [facility] [address] [place] [address], * SCAN-COLONOSCOPY (09/20/2018 12:00 AM CDT) us Scanner OTHER Final Result from Last 3 Months or Most Recently Relevant to Health Maintenance Insurance BLUE CROSS CIRCLE BLUE MR PB ONLY MEDICARE PART A HB ONLY MEDICARE PART B HB ONLY BLUE CROSS CIRCLE BLUE HB ONLY Advance Directives * Full Code (Latest Code Status on File) Date Activated Date Inactivated Comments 01/19/2022 12:42 PM 01/19/2022 4:36 PM Question Answer Comments Code Status Discussion: Reviewed Preferences * Full Code Date Activated Date Inactivated Comments 01/19/2022 8:49 AM 01/19/2022 12:42 PM Question Answer Comments Code Status Discussion: Not Discussed * Full Code Date Activated Date Inactivated Comments 08/14/2013 4:00 PM 08/14/2013 6:37 PM Care Teams Claims Director Relationship Specialty Start [place] [address] [place] [address] PCP - General Physician Pocket And Pulley Machine Operator 04/24/19 Douglas Farmer DO [address] [place] [address] Endocrinology 07/21/22
[2024-09-11 08:28] LABS: Appearance Urine Cloudy (Clear); Bilirubin Urine Negative (Negative); Blood Urine Trace-intact (Negative); Color Urine Light yellow (Yellow); Glucose Urine Negative (Negative); Ketones Urine Negative (Negative); Leukocyte Esterase Urine 1+ (Negative); Nitrite Urine Positive (Negative); Protein Urine Negative (Negative); Specific Gravity Urine 1.015 (1.000-1.030); Urobilinogen Urine 0.2 (0.2-1.0); pH Urine 8.5 (5.0-8.5)
[2024-09-11 08:42] LABS: Bacteria Urine Many
--- NOTE | 2024-09-11 08:59 | CRLHL7_ITS ---
For Patients: As a result of the Century Cures Act, medical imaging exams and procedure reports are released immediately into your electronic medical record. You may view this report before your referring provider. If you have questions, please contact your health care provider. INDICATION: Left lower quadrant pain. COMPARISON: Multiple prior studies, the most recent dated 10/13/2022. TECHNIQUE: CT of the abdomen and pelvis with 63 cc of Isovue 370 intravenous contrast. Please note that all CT scans at this facility use dose modulation, iterative reconstruction, and/or weight-based dosing when appropriate to reduce radiation dose to as low as reasonably achievable. FINDINGS: ABDOMEN Liver: Normal contour and attenuation. No significant focal lesion. No intrahepatic biliary ductal dilatation. Patent portal veins. Patent hepatic veins. Gallbladder: Normal size. No pericholecystic inflammatory changes. Normal common duct caliber. Pancreas: Normal contour and attenuation. No peripancreatic inflammatory changes. No significant focal lesion. Normal main duct caliber. Spleen: Not enlarged. No significant focal lesion. Patent splenic artery and vein. Adrenal Glands: Symmetrical adrenal glands. No significant focal lesion. Kidneys: Normal bilateral renal attenuation. The left kidney is malrotated. No significant focal lesion. Incidental benign medial left interpolar renal cortical cyst (2; 47). No nephrolith. No dilatation of the intrarenal collecting systems. No ureteral stone. Nondilated ureters. Patent renal arteries and veins. Gastrointestinal tract: Focal pericolic fat stranding associated with a peripherally enhancing sigmoid diverticulum (series 2; image 96) is consistent with acute diverticulitis. Associated focal stratified wall thickening of the sigmoid colon consistent with submucosal edema. Consider further evaluation (endoscopy) when the patient has overcome the acute episode, as clinically appropriate. Normal appendix. Vascular: Abdominal aorta and its major proximal branches including the celiac, superior mesenteric, inferior mesenteric, renal, and bilateral common iliac arteries are patent. Patent superior mesenteric vein. Peritoneal Cavity/Retroperitoneum: No ascites. No adenopathy. PELVIS No bladder lesion is identified. No significant incidental findings related to the uterus or uterine adnexa. Small volume ascites. No adenopathy. SKELETON AND BODY WALL No acute or significant incidental findings. Chronic L5 superior endplate compression deformity. Note is made of a right hip arthroplasty. LOWER THORAX Incidental note is made of lateral segment right middle lobe and lingular pleural-based linear and reticular opacities consistent with nonspecific minor fibrosis. Partially included lower thoracic wall, lungs, pleural spaces and mediastinum are otherwise without significant incidental findings. IMPRESSION: 1. Acute uncomplicated sigmoid diverticulitis described above. Small volume free pelvic fluid. No organized abscess. 2. Focal stratified wall thickening of the sigmoid colon is consistent with submucosal edema. Consider further evaluation (endoscopy) when the patient has overcome the acute episode if clinically appropriate. 3. Incidental findings as above. Please note that all CT scans at this facility use dose modulation, iterative reconstruction, and/or weight-based dosing when appropriate to reduce radiation dose to as low as reasonably achievable. Dictated by Dave Wyatt MD @ 09/11/2024 10:34:25 AM (Electronically Signed)
--- OUTSIDE RECORDS SUMMARY | 2024-09-11 08:59 | XMS_ITS | Clinical Summary ---
Author Organization [email or web address] Address [address] [place] [address] Care Team Providers Care Barrel Raiser Helper Name Role Phone Barbara Ojeda Primary Care Provider Marleny Douglas Loraine DO Unavailable [phone] Allergies Active Allergy Reactions Criticality Noted Date [...] 13 Hx of breast cancer (ER and NC positive, Right lumpectomy July 2003, sentinal node negative, radiation therapy, no chemo) 09/10/2009 Encounters Date Type Department Care Team Description 09/10/2024 Telephone [facility] [address] [place] [address] Barbara Ojeda PA 07/01/2024 2:40 PM ENGINEERING SCIENTIST Phone Office Visit [facility] [address] [facility] [address] [facility] [address] [place] [address] Douglas Farmer DO 07/01/2024 Travel [...] History Relation Name Comments Heart Disease Brother [place] Heart Disease Father CHF, surgery c omplications [...] on file Legal Sex Female 7:44 AM ENGINEERING SCIENTIST Gender Identity Not on file Sexual Orientation Not on file Occupation Industry Job Start Date Job End Date Retired - [employer] Not on file Not on file Not [...] 04/25/2024 04/25/2019, 07/07/2015, 02/05/2013 (Completed outside of [facility]), Additional history exists Tetanus booster 04/24/2029 04/24/2019, 06/03/2008 RSV vaccine for adults or (1 - 1-dose 75+ series) 2029 Zoster (shingles) series for age 50+ Completed 01/26/2018, 10/16/2017, 07/07/2015 Tdap Completed 04/24/2019, 06/03/2008 Hepatitis C screening for ag e 18-79 Completed 07/10/2019 DEXA/DXA scan for age 65+ Completed 2023, 11/24/2021, 07/04/2019 Medical Devices Implanted Type Area Die Maintenance Technician Device Identifier Shelf Expiration Date Model / Serial / Lot Mesh Ventral 4.5in Ventralight St W/[address] Cir - [id number] Implanted:Qty: 1 on 01/19/2022 by Stef Guerrero MD at [facility] General Surgery Implants [employer] MESH 05/30/2023 [id number] / / [id number] Procedures Procedure Name Priority Date/Time Associated Diagnosis Comments XR DXA BONE DENSITY 2 SITES AXIAL Routine 05/08/2024 9:58 AM ENGINEERING SCIENTIST Age-related osteoporosis without current pathological fracture SCAN-MAMMOGRAPHY REPORT 09/16/2022 12:00 AM CDT ANTI HCV Routine 07/10/2019 12:33 PM ENGINEERING SCIENTIST Need for hepatitis C screening test LIPID PANEL W REFLEX MEASURED LDL Routine 04/25/2019 2:35 PM CDT Borderline high cholesterol SCAN-COLONOSCOPY 09/20/2018 12:0 0 AM CDT from Last 3 Months or Most Recently Relevant to Health Maintenance Results * XR DXA BONE DENSITY 2 SITES AXIAL (05/08/2024 9:58 AM ENGINEERING SCIENTIST) Anatomical Region Laterality Modality Spine, HIPS, HIPL, HIPR Computed Radiography 05/08/2024 9:58 AM ENGINEERING SCIENTIST Impressions 05/09/2024 9:31 AM ENGINEERING SCIENTIST OSTEOPOROSIS. T score meets the WHO criteria for osteoporosis at one or more measured sites. The risk of osteoporotic fracture increases approximately two-fold for each standard deviation decrease in T-score. Narrative 05/09/2024 9:31 AM ENGINEERING SCIENTIST For Patients: As a result of the Century Cures Act, medical imaging exams and procedure reports are released immediately into your electronic medical record. You may view this report before your referring provider. If you have questions, please contact your health care provider. EXAM: XR DXA BONE DENSITY 2 SITES AXIAL LOCATION: [facility] DATE: 05/08/2024 INDICATION: , postmenopausal, height loss, [...] BONE DENSITY 2 SITES AXIAL LOCATION: [facility] DATE: 05/08/2024 INDICATION: , postmenopausal, height loss, [...] Result * ANTI HCV (07/10/2019 12:33 PM ENGINEERING SCIENTIST) [facility] HEPATITIS C ANTIBODY Non-React jin Non-React jin 07/10/2019 8:03 PM ENGINEERING SCIENTIST [facility] Comment:Antibodies to HCV no t detected; does not exclude the possibility of exposure to HCV. Blood BLOOD SPECIMEN / Unknown Venipuncture / Unknown 07/10/2019 12:33 PM ENGINEERING SCIENTIST 07/10/2019 12:33 PM ENGINEERING SCIENTIST Barbara GOODWIN SEND OUTS Final Result [facility] [address] [place] [address], * (ABNORMAL) LIPID PANEL W REFLEX MEASURED LDL (04/25/2019 2:35 PM CDT) [facility] CHOLESTEROL,TOTAL 205(H) 100 - 199 mg/dL 04/25/2019 8:21 PM CDT [facility] TRIGLYCERIDES 73 <150 mg/dL 04/25/2019 8:21 PM CDT [facility] HDL CHOLESTEROL 60 >40 mg/dL 9 8:21 PM CDT [facility] NON-HDL CHOLESTEROL 145(H) <145 mg/dl 04/25/2019 8:21 PM CDT [facility] CHOL/HDL RATIO 3.42 <4.50 04/25/2019 8:21 PM CDT [facility] LDL CHOLESTEROL 130 <=130 mg/dL 04/25/2019 8:21 PM CDT [facility] PROVIDER ORDERED STATUS FASTING 04/25/2019 8:21 PM CDT [facility] Blood BLOOD SPECIMEN / Unknown Venipuncture / Unknown 04/25/2019 2:35 PM CDT 04/25/2019 2:35 PM CDT us Barbara GOODWIN CHEMISTRY Final Result [facility] [address] [place] [address], * SCAN-COLONOSCOPY (09/20/2018 12:00 AM CDT) us [...] 4:00 PM 08/14/2013 6:37 PM Care Teams Barrel Raiser Helper Relationship Specialty [place] [address] [place] [address] PCP - General Physician Plug Saw Operator 04/24/19 Douglas Farmer DO [address] [facility] [address] [place] [address] Endocrinology 07/21/22
--- OUTSIDE RECORDS SUMMARY | 2024-09-11 08:59 | XMS_ITS | Encounter Summary ---
Author Organization [facility] Address [address] [place] [address] Care Team Providers Care Event Decorator And Designer Name Role Phone Denisha Grayson DO Primary Care Provider [phone] Gómez Cook MD Unavailable [phone] Gómez Cook MD Unavailable [phone] Glenna Bryant PA-C Primary Care Provid er Glenna Bryant PA-C Unavailable [phone] óGmez Cook MD Unavailable [phone] Reason for Visit * Reason Onset Date Comments Results 10/10/2019 would like to ta lk to the nurse today Results 10/11/2019 Xray results fro m monday Encounter Details Date Type Department Care Team (Late st Contact Info) Description 10/10/2019 Telephone [facility] [address] [facility] [address] 4[address] [place] [address] Gómez Cook MD [address] [place] [address] Results (would like to talk [...] on file Legal Sex Female 3:16 AM ADDICTION PSYCHIATRIST Gender Identity Not on file Sexual Orientation [...] test done at a location other than [facility] (Please fill in the location if not [facility])?:[facility] Action Taken: Message routed to: [facility] ([facility]): orthopedics Travel Screening: Not Applicable * Telephone [...] Message routed to: [facility] ([facility]): ortho Travel Screening: Not Applicable * Telephone Encounter - Rose Tatum - 10/10/2019 1:12 PM CDT [facility] Phone Message May a detailed message be left on voicemail: yes Reason for Call: Requesting Results Name/type of test: Xrays for femur, pelvis, and hip Date of test: 10/07/2019 Was test done at a location other than [facility] (Please fill in the location if not [facility])?: Yes: [facility] Action Taken: Message routed to: [facility] ([facility] Ortho Travel Screening: Not Applicable documented in this encounter Plan of Treatment Not on file documented as of this encounter Visit Diagnoses Not on filedocumented in this encounter Care Teams Event Decorator And Designer Relationship Specialty Start Date End Date Denisha Grayson DO PCP - General 12/16/15 08/09/23 Glenna Bryant PA-C [address] [address] PCP - General Family Medicine 08/10/23 Gómez Cook MD [address] [place] [address] Orthopedics 11/22/19 Gómez Cook MD [address] [place] [address] Assigned Musculoskeletal Provider 04/24/20 06/05/21 Glenna Bryant PA-C [address] [address] Assigned PCP 08/25/23 Gómez Cook MD [address] [place], [place] [id number] [place] [address] Assigned Musculoskeletal Provider 01/23/24 documented as of this encounter
--- OUTSIDE RECORDS SUMMARY | 2024-09-11 09:00 | XMS_ITS | Clinical Summary ---
Author Organization [facility] Address [address] [place] [address] Care Team Providers Care Ski Patrol Name Role Phone Gómez Cook MD Unavailable [phone] Glenna Bryant PA-C Primary Care Provid er Glenna Bryant PA-C Unavailable + [phone] Gómez Cook MD Unavailable [phone] Allergies No known active allergies Medications Multiple [...] Noted Date Diagnosed Date Resolved Date [facility] 08/11/2023 12/18/2023 Immunizations Name Administration Dates Next [...] on file Legal Sex Female 3:16 AM RESTAURANT AREA DIRECTOR Gender Identity Not on file Sexual Orientation Not on file Last Filed Vital Signs Vital Sign Reading Time Taken Comments Blood Pressure 96/68 08/11/2023 1:09 PM RESTAURANT AREA DIRECTOR Pulse 80 08/11/2023 1:09 PM RESTAURANT AREA DIRECTOR Temperature 37 C (98.6 F) 08/11/2023 1:09 PM RESTAURANT AREA DIRECTOR Respiratory Rate 20 08/11/2023 1:09 PM RESTAURANT AREA DIRECTOR Oxygen Saturation 100% 06/27/2016 4:00 PM RESTAURANT AREA DIRECTOR Inhaled Oxygen Concentration - - Weight 55.3 [...] DX BONE DENSITY Routine 07/04/2019 9:57 AM RESTAURANT AREA DIRECTOR Post-menopausal COMPREHENSIVE METABOLIC PANEL STAT 06/27/2016 11:55 AM RESTAURANT AREA DIRECTOR COLONOSCOPY - HIM SCAN Routine 02/18/2015 from [...] Result * DX Hip/Pelvis/Spine (07/04/2019 9:57 AM RESTAURANT AREA DIRECTOR) Anatomical Region Laterality Modality Dexa Bone Mineral Den sity Narrative 07/08/2019 1:44 PM RESTAURANT AREA DIRECTOR BONE DENSITOMETRY [address] [address] 07/04/2019 PATIENT: Faiza Nick CHART: [id number] : 1955 AGE: [age] year old SEX: female REFERRING PROVIDER: Barbara Ojeda PA-C PROCEDURE: Bone density scanning was performed using DXA technology of the lumbar spine and hip. Scanning was performed on a [employer] scanner. Reporting is completed in the form [...] * Comprehensive metabolic panel (06/27/2016 11:55 AM RESTAURANT AREA DIRECTOR) Sodium 142 133 - 144 mmol/L [facility] Potassium 3.7 3.4 - 5.3 mmol/L [facility] Chloride 108 94 - 109 mmol/L [facility] Carbon Dioxide 26 20 - 32 mmol/L [facility] Anion Gap 8 3 - 14 mmol/L [facility] Glucose 83 70 - 99 mg/dL [facility] Urea Nitrogen 16 7 - 30 mg/dL [facility] Creatinine 0.67 0.52 - 1.04 mg/dL [facility] GFR Estimate 90 >60 mL/min/1. 7m2 [facility] Comment:Non GFR Calc GFR Estimate If Black >90 GFR Calc >60 mL/min/1. 7m2 [facility] Calcium 9.3 8.5 - 10.1 mg/dL [facility] Bilirubin Total 0.4 0.2 - 1.3 mg/dL [facility] Albumin 3.5 3.4 - 5.0 g/dL [facility] Protein Total 7.4 6.8 - 8.8 g/dL [facility] Alkaline Phosphatase 108 40 - 150 U/L [facility] ALT 16 0 - 50 U/L [facility] AST 20 0 - 45 U/L [facility] Blood specimen (specimen) 06/27/2016 11:55 AM RESTAURANT AREA DIRECTOR 06/27/2016 12:05 PM RESTAURANT AREA DIRECTOR us Qamar Campbell MD LAB - BLOOD ORDERABLES Fi nal Result [facility] [address] [place] [address], [facility] [phone] * Colonoscopy - HIM Scan (02/18/2015) 02/18/2015 Narrative Kati Neal CMA - 02/18/2015 [facility] Everywhere us Provider Outside PROCEDURES Final Result from Last 3 Months or Most Recently Relevant to Health Maintenance Insurance MEDICARE [facility] MEDICARE [facility] MEDICARE [facility] Care Teams Ski Patrol Relationship Specialty Start Date End Date Glenna Bryant PA-C [address] [place] [address] PCP - General Family Medicine 08/10/23 Gómez Cook MD [address] [place] [address] Orthopedics 11/22/19 Glenna Bryant PA-C [address] [place] [address] Assigned PCP 08/25/23 Gómez Cook MD [address] [place] [address] Assigned Musculoskeletal Provider 01/23/24
--- OUTSIDE RECORDS SUMMARY | 2024-09-11 09:00 | XMS_ITS | Clinical Summary ---
Author Organization [facility] Address [address], [place] [address] Care Team Providers Care Talent Acquisition Associate Name Role Phone Denisha Grayson DO Primary Care Provider + Source Comments You are receiving this document as you are listed as the primary care provider,follow-up provider, or the patient has been referred to you for consultation.This is in compliance with the Medicare and[facility] EHR Incentive Program,which states Providers who transition their patient to another setting of careor provider of care or refers their patient to another provider of care shouldprovide summary care record for each transition of care or referral. [facility] Allergies Active Allergy Reactions Criticality Noted Date [...] Comments Blood Pressure 109/65 07/25/2017 10:07 AM ORNAMENT STAPLER Pulse 75 07/25/2017 10:07 AM ORNAMENT STAPLER Temperature - - Respiratory Rate - - Oxygen Saturation 96% 05/20/2017 8:26 AM ORNAMENT STAPLER Inhaled Oxygen Concentration - - Weight 54.6 kg (120 lb 6.4 oz) 07/25/2017 10:07 AM ORNAMENT STAPLER Height 165.1 cm (5' 5) 07/25/2017 10:07 AM ORNAMENT STAPLER Body Mass Index 20.04 07/25/2017 10:07 AM ORNAMENT STAPLER Plan of Treatment Health Maintenance Due Date [...] age to complete this topic Care Teams Talent Acquisition Associate Relationship Specialty Start Date End Date Denisha Grayson DO [address] [facility] [address] [place] [address] PCP - General 07/25/17
--- NOTE | 2024-09-11 09:01 | ED_ITS ---
HPI - General Adult General Chief complaint: Abdominal Pain Stated complaint: Lower L abdominal pain Time Seen by Provider: 09/11/24 08:39 History of Present Illness HPI narrative: Patient is a 69-year-old female who has a history of diverticulitis by her report, she has had yesterday and today left-sided lower abdominal pain. She has had normal bowel and bladder function. No vomiting. She has had the discomfort is about the same as yesterday evening. No blood in her stool. No h istory colitis. Patient has no chest pain or breathing problem. No rigors or chills. Related Data Home Medications ?Medication ?Instructions ?Recorded ?Confirmed No Known Home Medications 09/11/24 09/11/24 Allergies Allergy/AdvReac Type Severity Reaction Status Date / Time Penicillins Allergy Mild Hives Verified 09/11/24 10:22 Review of Systems Status of ROS: Reports: 6 or more systems reviewed and unremarkable except as noted in History and below PFSH PFSH Social History Smoking Status: Never smoker Do you use any of these nicotine containing products: None Second hand tobacco smoke exposure: No How often do you have a drink containing alcohol: never AUDIT-C Alcohol total score: 0 Non-prescribed substance use: denies use Exam Narrative: Exam Narrative: Objective: Patient's vital signs are within normal limits, afebrile She is alert are x3 HEENT shows no scleral icterus no facial asymmetry Neck is supple Heart rhythm regular heart murmur Abdomen benign soft nontender no obvious rebound or peritonitis although she points for left lower quadrant as being the area of discomfort. No palpable mass. Extremities without edema neurologic nonfocal. Const: Vital Signs, click to edit/add: Vital Signs - 24 hr 09/11/24 08:09 Temperature 98.6 F Pulse Rate [Pulse Oximeter] 82 Respiratory Rate 16 Blood Pressure [Ri ght Upper Arm] 107/69 Pulse Oximetry 98 Oxygen Delivery Me thod Room Air Course Vital Signs Vital signs: Initial Vital Signs Temperature 98.6 F 09/11/24 08:09 Temperature Source Temporal Artery Scan 09/11/24 08:09 Pulse Rate 82 09/11/24 08:09 Respiratory Rate 16 09/11/24 08:09 Blood Pressure 107/69 09/11/24 08:09 Blood Pressure Mean 81 09/11/24 08:09 Blood Pressure Position Sitting 09/11/24 08:09 Pulse Oximetry 98 09/11/24 08:09 Oxygen Delivery Method Room Air 09/11/24 08:09 Vital Signs Temperature 98.6 F 09/11/24 08:09 Pulse Rate 82 09/11/24 08:09 Respiratory Rate 16 09/11/24 08:09 Blood Pressure 107/69 09/11/24 08:09 Pulse Oximetry 98 09/11/24 08:09 Oxygen Delivery Method Room Air 09/11/24 08:09 Temperature 98.6 F 09/11/24 08:09 Pulse Rate 82 09/11/24 08:09 Respiratory Rate 16 09/11/24 08:09 Blood Pressure 107/69 09/11/24 08:09 Pulse Oximetry 98 09/11/24 08:09 Oxygen Delivery Method Room Air 09/11/24 08:09 Medications Administered Medications: Discontinued Medications Generic Name Dose Route Start Last Admin Trade Name Freq PRN Reason Stop Dose Admin Sodium Chloride 1,000 mls @ 6,000 mls/hr 09/11/24 09:00 09/11/24 10:08 0.9 % Sodium Chloride 1000 Ml IV 09/11/24 09:09 Infused .Q10M YEE Infusion Morphine Sulfate 2 mg 09/11/24 08:59 09/11/24 10:10 Morphine 4 Mg/Ml Inj IVP 09/11/24 09:00 Not Given ONCE ONE Medical Decision Making MDM Narrative Medical decision making narrative: [age] year white female with left-sided lower abdominal pain for over 24 hours duration. History of diverticulitis. At this point would check a urinalysis for rule out urinary tract infection, rule out diverticulitis or intra-abdominal pathology. Will get a CT scan with IV contrast of her abdomen pelvis. Get laboratory studies. Will give a small dose of morphine for pain control, and the IV fluid. Will keep NPO for now and disposition pending findings above. Addendum 11:00 a.m. patient has reassuring blood work, her CT shows non complicated sigmoid diverticulitis. She declines anything for pain but does want antibiotics. Will give her Cipro and Flagyl. Recheck with regular doctor as needed, light diet for the next 24 hours. Return if problems or concerns Lab Data Labs: Lab Results 09/11/24 09/11/24 Range/Units 08:15 09:18 WBC 8.26 (4.50-11.00) K/uL RBC 4.59 (4.00-5.20) m/uL Hgb 13.8 (12.0-16.0) gm/dL Hct 41.8 (33.0-51.0) % MCV 91 (80-100) fL MCH 30 (26-34) pg MCHC 33 (32-36) gm/dL RDW Coeff of Deshawn 12.5 (11.5-15.5) % Plt Count 197 (140-440) K/uL Neut % (Auto) 73.2 H (42.0-72.0) % Lymph % (Auto) 16.0 L (20-44) % [place] % (Auto) 9.4 (0.0-11.0) % Eos % (Auto) 1.1 (0.0-7.0) % Baso % (Auto) 0.1 (0.0-3.0) % Neut # (Auto) 6.00 (1.7-7.0) K/uL Lymph # (Auto) 1.30 (0.90-2.90) K/uL [place] # (Auto) 0.80 (0.00-0.90) K/UL Eos # (Auto) 0.09 (0.00-0.50) K/uL Baso # (Auto) 0.01 (0.00-0.30) K/uL Abs Immat Gran (auto) 0.02 (0.00-0.30) K/uL Imm/Tot Granulo (auto) 0.2 % Sodium 137 (135-149) mmol/L Potassium 3.7 (3.6-5.1) mmol/L Chloride 103 (96-114) mmol/L Carbon Dioxide 27 (20-32) mmol/L Anion Gap 7 (7-15) mEq/L BUN 16 (7-30) mg/dL Creatinine 0.7 (0.5-1.5) mg/dL Estimated Creat Clear 43.30 Estimated GFR 93 ml/min Glucose 93 (60-115) mg/dL Lactate 0.6 (0.5-1.9) mmol/L Calcium 9.4 (8.4-10.6) mg/dL Total Bilirubin 0.7 (0.1-1.5) mg/dL Direct Bilirubin 0.2 (0.0-0.5) mg/dL AST 22 (12-35) U/L ALT 13 (4-35) U/L Alkaline Phosphatase 86 (40-150) U/L C-Reactive Protein 2.1 H (0.5-1.0) mg/dL Total Protein 7.4 (6.0-8.3) g/dL Albumin 4.2 (3.3-5.0) g/dL Amylase 75 (18-89) U/L Urine Color Light yellow (Yellow) Urine Appearance Cloudy A (Clear) Urine pH 8.5 (5.0-8.5) Ur Specific [place] 1.015 (1.000-1.030) Urine Protein Negative (Negative) Urine Glucose (UA) Negative (Negative) Urine Ketones Negative (Negative) Urine Blood Trace-intact A (Negative) Urine Nitrite Positive A (Negative) Urine Bilirubin Negative (Negative) Urine Urobilinogen 0.2 (0.2-1.0) Ur Leukocyte Esterase 1+ A (Negative) Urine RBC 2-5 A (0-2) Urine WBC 10-25 A (0-5) Ur Squamous Epith Cells None (None-Few) Urine Bacteria Many A (None) Discharge Plan Discharge Clinical Impression: Abdominal pain, Diverticulitis Patient Disposition: Home w/ Parent or Adult Condition: Stable Instructions: Diverticulitis (ED), Diverticulitis Diet (ED) Additional Instructions: antibiotics from in see med, light diet for the next 24 hours, return as needed, update your regular doctor the next 2-3 days. Return as needed. Activity Level: Light activity Discharge Diet: Full Liquid Prescriptions: No Action No Known Home Medications Follow Up/Referrals: Provider,Not a Local [Primary Care Provider] - Stand Alone Forms: [employer] Info Instructions
[2024-09-11] MEDS: 0.9 % SODIUM CHLORIDE 1000 ml 1,000 ML 6000 ML IV (09:15)
[2024-09-11 09:35] LABS: Lactate* 0.6 mmol/L (0.5-1.9)
[2024-09-11 09:36] LABS: Basophils Absolute Auto 0.01 K/uL (0.00-0.30); Basophils Percent Auto 0.1 % (0.0-3.0); Eosinophils Absolute Auto 0.09 K/uL (0.00-0.50); Eosinophils Percent Auto 1.1 % (0.0-7.0); Hematocrit 41.8 % (33.0-51.0); Hemoglobin* 13.8 gm/dL (12.0-16.0); Immature Granulocytes Abs Auto 0.02 K/uL (0.00-0.30); Immature Granulocytes Pct Auto 0.2 %; Mean Corpuscular HGB Conc 33 gm/dL (32-36); Mean Corpuscular Hemoglobin 30 pg (26-34); Mean Corpuscular Volume 91 fL (80-100); Monocytes Percent Auto 9.4 % (0.0-11.0); Neutrophils Percent Auto 73.2 % (42.0-72.0); Platelet Count* 197 K/uL (140-440); RDW Coefficient of Variation % 12.5 % (11.5-15.5); Red Blood Count 4.59 m/uL (4.00-5.20); Slide Review Reflex No; White Blood Count* 8.26 K/uL (4.50-11.00)
[2024-09-11 09:51] LABS: Albumin* 4.2 g/dL (3.3-5.0); Chloride* 103 mmol/L (96-114); Potassium* 3.7 mmol/L (3.6-5.1); Sodium* 137 mmol/L (135-149)
[2024-09-11 09:53] LABS: Amylase* 75 U/L (18-89); Blood Urea Nitrogen* 16 mg/dL (7-30); Creatinine* 0.7 mg/dL (0.5-1.5); Estimated Glomerular Filt Rate 93 ml/min
[2024-09-11 09:54] LABS: Alanine Aminotransferase* 13 U/L (4-35); Alkaline Phosphatase* 86 U/L (40-150); Anion Gap 7 mEq/L (7-15); Aspartate Amino Transferase* 22 U/L (12-35); Bilirubin Direct* 0.2 mg/dL (0.0-0.5); Bilirubin Total* 0.7 mg/dL (0.1-1.5); Calcium* 9.4 mg/dL (8.4-10.6); Carbon Dioxide* 27 mmol/L (20-32); Glucose* 93 mg/dL (60-115); Total Protein* 7.4 g/dL (6.0-8.3)
[2024-09-11 09:57] LABS: C Reactive Protein* 2.1 mg/dL (0.5-1.0)
== END 2024-09-11 11:35 | disposition home or self-care (01) ==
PROVIDERS: Emergency Provider Family Medicine
DX: K57.92 Diverticulitis of intestine, part unspecified, without perforation or abscess without bleeding (principal); R10.9 Unspecified abdominal pain
CPT/HCPCS: 36415; 74177; 80048; 80076; 81001; 81003; 82150; 83605; 85025; 86140; 87086; 96374; 99284; 99285; J2270; J7030; Q9967

== ENCOUNTER 2025-05-17 09:28 | Outpatient (CLI) | payer MEDICARE, BC, SELFPAY | END 2025-05-17 09:29 | disposition home or self-care (01) | LOC: NFLDREF 05-21 19:38 | DX: N30.00 Acute cystitis without hematuria (principal) | CPT/HCPCS: 87086 ==